=== PATIENT | male | born 1950 | race Hispanic/Latino ===

== ENCOUNTER 2018-09-07 09:49 | Outpatient (CLI) | payer OTHER | END 2018-09-07 21:06 | disposition home or self-care (01) | LOC: RAD 09:49 | DX: M25.531 Pain in right wrist (principal) ==

== ENCOUNTER 2021-10-07 15:01 | Outpatient (CLI) | payer OTHER | END 2021-10-07 19:04 | disposition home or self-care (01) | LOC: RAD 15:01 | PROVIDERS: ATTEND Internal Medicine | DX: J40 Bronchitis, not specified as acute or chronic (principal) ==

== ENCOUNTER 2022-01-07 14:14 | Outpatient (CLI) | payer OTHER ==
[2022-01-07 14:52] LABS: PLATELET COUNT 297 K/uL (142-355)
[2022-01-07 15:08] LABS: POTASSIUM 4.2 mmol/L (3.6-5.2)
== END 2022-01-07 19:08 | disposition home or self-care (01) ==
LOC: LAB 14:14
PROVIDERS: ATTEND Internal Medicine
DX: R10.11 Right upper quadrant pain (principal)
CPT/HCPCS: 80053; 81002; 82150; 83690; 85027

== ENCOUNTER 2022-01-13 08:27 | Outpatient (CLI) | payer OTHER | END 2022-01-13 18:56 | disposition home or self-care (01) | LOC: US 08:27 | PROVIDERS: ATTEND Internal Medicine | DX: R10.11 Right upper quadrant pain (principal) ==

== ENCOUNTER 2022-09-23 11:43 | Outpatient (CLI) | payer OTHER ==
[2022-09-23 12:05] LABS: PLATELET COUNT 239 K/uL (142-355)
[2022-09-23 12:55] LABS: POTASSIUM 4.5 mmol/L (3.6-5.2)
== END 2022-09-23 20:59 | disposition home or self-care (01) ==
LOC: LAB 11:43
PROVIDERS: ATTEND Internal Medicine
DX: Z01.818 Encounter for other preprocedural examination (principal)
CPT/HCPCS: 80048; 85027